=== PATIENT | male | born 1990 | race Caucasian/White ===

== ENCOUNTER → 2017-08-02 | Emergency (ER) | payer OTHER ==
[~2017-08-02] VITALS: Ht 182.9 cm; Wt 101.6 kg
[2017-08-02 21:10] LABS: HEMATOCRIT 44.3 % (38.0-50.0); HEMOGLOBIN 16.1 G/DL (12.5-16.6); MCH 31.9 PG (29.0-34.0); MCHC 36.3 G/DL (30.0-36.0); MCV 87.7 FL (86-99); PLATELET COUNT 235 K/uL (156-360); RBC DIS.WIDTH-CV 12.3 % (11.8-14.6); RBC DIS.WIDTH-SD 39.5 % (39-53); RED BLOOD COUNT 5.05 M/uL (4.00-5.50); WHITE BLOOD COUNT 7.7 K/uL (4.1-10.2)
[2017-08-02 21:18] LABS: CHLORIDE 107 mEq/L (99-109); POTASSIUM 3.6 mEq/L (3.7-5.4); SODIUM 139 mEq/L (136-147)
[2017-08-02 21:20] LABS: GLUCOSE 89 mg/dL (70-99)
[2017-08-02 21:23] LABS: SERUM ETHYL ALCOHOL < 10 mg/dL
[2017-08-02 21:24] LABS: GFR ESTIMATE (CALCULATED) > 59 mL/min/ (58.99-99999)
[2017-08-02 21:25] LABS: UREA NITROGEN (BUN) 8 mg/dL (9-23)
[2017-08-02 22:19] LABS: AMPHETAMINE NEGATIVE (500 ng/mL); BENZODIAZEPINES PRESUMPTIVE POSITIVE (150 ng/mL); COCAINE NEGATIVE (150 ng/mL); METHAMPHETAMINE NEGATIVE (500 ng/mL); OPIATES (MORPHINE) NEGATIVE (100 ng/mL); PHENCYCLIDINE NEGATIVE (25 ng/mL); THC CANNABINOIDS PRESUMPTIVE POSITIVE (50 ng/mL)
[2017-08-02 22:20] LABS: BARBITURATES NEGATIVE (200 ng/mL); BUPRENORPHINE NEGATIVE (10 ng/mL); METHADONE NEGATIVE (200 ng/mL); OXYCODONE NEGATIVE (100 ng/mL); PROPOXYPHENE NEGATIVE (300 ng/mL); TRICYCLIC ANTIDEPRESSANTS NEGATIVE (300 ng/mL)
[2017-08-02 22:48] LABS: BENZODIAZEPINES, URINE SCREEN POSITIVE (200 ng/mL)
[2017-08-03 10:55] VITALS: BP 131/84
== END ==
LOC: EME 20:12
PROVIDERS: Emergency Medicine Emergency Medical Services
DX: T42.4X2A Poisoning by benzodiazepines, intentional self-harm, initial encounter (principal); R45.851 Suicidal ideations; F32.9 Major depressive disorder, single episode, unspecified; F19.10 Other psychoactive substance abuse, uncomplicated; F41.9 Anxiety disorder, unspecified
CPT/HCPCS: 80048; 84999; 85027; 90837; G0480